=== PATIENT | male | born 1985 ===

== ENCOUNTER 2018-08-13 | Emergency (ER) | payer OTHER ==
--- NOTE | 2018-08-13 00:21 | ED PDOC ---
Arrival/HPI - General Chief Complaint: Chest Pain Time Seen by Provider: 08/13/18 00:07 Historian: Patient - History of Present Illness Narrative History of Present Illness (Text): 08/13/18 00:19 Lilian Parrish is a 32 year old male smoker, with no significant past medical history, who presents to the Emergency department complaining of chest pain. Patient states he woke up prior to arrival with mid-sternal chest pain, wo rsened with deep inspiration. Patient denies any fever, abdominal pain, nausea, vomiting, back pain, headache, or any other complaints. Patient denies any family history of CAD. Symptom Onset: Gradual Symptom Course: Unchanged Activities at Onset: Light Context: Home Past Medical History - Provider Review Nursing Documentation Reviewed: Yes - Psychiatric Hx Substance Use: No Family/Social History - Physician Review Nursing Documentation Reviewed: Yes Family/Social History: Unknown Family HX Smoking Status: Light Smoker < 10 Cigarettes Daily Hx Alcohol Use: Yes Frequency of alcohol use: Socially Hx Substance Use: No Allergies/Home Meds Allergies/Adverse Reactions: Allergies No Known Allergies Allergy (Verified 08/13/18 00:05) Home Medications: Home Meds Medication Instructions Recorded Confirmed RX: No Known Home Med 08/13/18 08/13/18 Review of Systems - Physician Review All systems were reviewed & negative as marked: Yes - Review of Systems Constitutional: Normal. absent: Fevers Eyes: Normal ENT: Normal Respiratory: Normal. absent: SOB, Cough Cardiovascular: Chest Pain Gastrointestinal: Normal. absent: Abdominal Pain, Diarrhea, Nausea, Vomiting Genitourinary Male: Normal. absent: Dysuria, Frequency, Hematuria, Urinary Output Changes Musculoskeletal: Normal. absent: Back Pain, Neck Pain Skin: Normal. absent: Rash Neurological: Normal. absent: Headache, Dizziness Endocrine: Normal Hemo/Lymphatic: Normal Psychiatric: Normal Physical Exam Vital Signs Reviewed: Yes Vital Signs Temp Pulse Resp BP Pulse Ox 08/13/18 00:05 98.7 F 66 20 131/85 99 Temperature: Afebrile Blood Pressure: Normal Pulse: Regular Respiratory Rate: Normal Appearance: Positive for: Well-Appearing, Non-Toxic, Comfortable Pain Distress: None Mental Status: Positive for: Alert and Oriented X 3 - Systems Exam Head: Present: Atraumatic, Normocephalic Pupils: Present: PERRL Extroacular Muscles: Present: EOMI Conjunctiva: Present: Normal Mouth: Present: Moist Mucous Membranes Neck: Present: Normal Range of Motion Respiratory/Chest: Present: Clear to Auscultation, Good Air Exchange, Tender to Palpation (left chest). No: Respiratory Distress, Accessory Muscle Use Cardiovascular: Present: Regular Rate and Rhythm, Normal S1, S2. No: Murmurs Abdomen: No: Tenderness, Distention, Peritoneal Signs Back: Present: Normal Inspection Upper Extremity: Present: Normal Inspection. No: Cyanosis, Edema Lower Extremity: Present: Normal Inspection. No: Edema Neurological: Present: GCS=15, CN II-XII Intact, Speech Normal Skin: Present: Warm, Dry, Normal Color. No: Rashes Psychiatric: Present: Alert, Oriented x 3, Normal Insight, Normal Concentration Medical Decision Making ED Course and Treatment: 08/13/18 00:19 Impression: 32 year old male complaining of chest pain after waking up tonight. Plan: -- EKG -- Chest X-ray -- Labs, cardiac enzymes -- Urinalysis -- Reassess and disposition Progress Notes: Reviewed EKG, NSR at [address]-segment elevations or depressions, no T-wave inversions, normal intervals 08/13/18 00:53 Chest X-ray reviewed, shows no acute processes. - Lab Interpretations I have reviewed the lab results: Yes - RAD Interpretation Manager Of Exhibitions And Collections: ED Physician - EKG Interpretation Interpreted by ED Physician: Yes Type: 12 lead EKG OLGA Risk Score for UA/NSTEMI - OLGA Risk Score Age > 64: NO 3 or more CAD Risk Factors: NO Known CAD (Stenosis greater than 50%): NO Aspirin use in past 7 days: NO Severe Angina: NO EKG ST changes greater than 0.5mm: NO Positive Cardiac Marker: NO LOGA Score: 0 % risk at 14 days of: all cause mortality, new or recurrent IA, or severe recurrent ischemia requiring urgen revascularization: 5% - Scribe Statement The provider has reviewed the documentation as recorded by the Keily Vázquez Provider Scribe Attestation: All medical record entries made by the Scribe were at my direction and personally dictated by me. I have reviewed the chart and agree that the record accurately reflects my personal performance of the history, physical exam, medical decision making, and the department course for this patient. I have also personally directed, reviewed, and agree with the discharge instructions and disposition. Disposition/Present on Arrival - Present on Arrival Any Indicators Present on Arrival: No History of DVT/PE: No History of Uncontrolled Diabetes: No Urinary Catheter: No History of Decub. Ulcer: No History Surgical Site Infection Following: None - Disposition Have Diagnosis and Disposition been Completed?: Yes Diagnosis: Chest pain Disposition: HOME/ ROUTINE Disposition Time: 02:30 Condition: GOOD Discharge Instructions (ExitCare): Chest Pain That Is Not Caused by the Heart (DC), Chest Pain (ED) Referrals: Trent Patterson MD [Primary Care Provider] - Follow up with primary Forms: [employer] (Haitian)
[2018-08-13 00:46] LABS: BASO # 0.02 K/mm3 (0.0-2.0); BASO % 0.1 % (0.0-3.0); EOS # 0.6 (0.0-0.7); EOS % 4.4 % (1.5-5.0); GRAN # 10.12 (1.4-6.5); HEMOGLOBIN 14.5 g/dL (14.0-18.0); LYMPH # 1.7 (1.2-3.4); LYMPH % 12.3 % (22.0-35.0); MEAN CELL VOLUME 94.7 fl (80.0-105.0); MEAN CORPUSCULAR HEMOGLOBIN 32.2 pg (25.0-35.0); MEAN PLATELET VOLUME 10.6 fl (7.0-11.0); MONO # 1.1 (0.1-0.6); MONO % 8.2 % (1.0-6.0); RBC 4.5 10^6/uL (3.5-6.1); RED CELL DISTRIBUTION WIDTH 13.5 % (11.5-14.5); WHITE BLOOD COUNT 13.5 10^3/uL (4.5-11.0)
[2018-08-13 01:01] LABS: ALB/GLOB RATIO 1.4 (1.1-1.8); ALBUMIN 4.2 g/dL (3.0-4.8); ALT/SGPT 29 U/L (7-56); AST/SGOT 28 U/L (17-59); BLOOD UREA NITROGEN 19 mg/dL (7-21); CALCIUM 8.9 mg/dL (8.4-10.5); GFR NON-AFRICAN AMERICAN > 60
[2018-08-13 01:10] LABS: TROPONIN I < 0.01 ng/mL
[2018-08-13 01:20] LABS: CK-MB 1.6 ng/mL (0.0-3.6)
[2018-08-13 01:57] VITALS: BP 137/82; PULSE 87; RESP 17; TEMP 98.1; O2SAT 98
--- NOTE | 2018-08-13 09:20 | RAD ---
Date of service: 08/13/2018 HISTORY: cp COMPARISON: No prior. FINDINGS: LUNGS: No active pulmonary disease. PLEURA: No significant pleural effusion identified, no pneumothorax apparent. CARDIOVASCULAR: No aortic atherosclerotic calcification present. Normal cardiac size. No pulmonary vascular congestion. OSSEOUS STRUCTURES: No significant abnormalities. VISUALIZED UPPER ABDOMEN: Normal. OTHER FINDINGS: None. IMPRESSION: No active disease.
--- NOTE | 2018-08-13 17:24 | CARD ---
APPROVED REPORT Date of service: 08/13/2018 EKG Measurement Heart [id number] NC 142P2 [id number] <Conclusion> Normal sinus rhythm Normal ECG
== END 2018-08-13 01:57 | disposition home or self-care (01) ==
LOC: ED
DX: R07.9 Chest pain, unspecified (principal)
CPT/HCPCS: 71045; 80053; 82550; 82553; 83615; 83735; 84484; 85025; 93005; 96374; 99283; J1885

== ENCOUNTER 2019-02-12 12:15 | Emergency (ER) | payer OTHER ==
[2019-02-12 13:05] LABS: BASO # 0.02 K/mm3 (0.0-2.0); BASO % 0.2 % (0.0-3.0); EOS # 0.4 (0.0-0.7); EOS % 4.1 % (1.5-5.0); HEMOGLOBIN 15.8 g/dL (14.0-18.0); LYMPH # 1.5 (1.2-3.4); LYMPH % 14.3 % (22.0-35.0); MEAN CELL VOLUME 93.5 fl (80.0-105.0); MEAN CORPUSCULAR HEMOGLOBIN 32.1 pg (25.0-35.0); MEAN CORPUSCULAR HGB CONC 34.3 g/dl (31.0-37.0); MEAN PLATELET VOLUME 10.7 fl (7.0-11.0); MONO # 1.1 (0.1-0.6); MONO % 10.5 % (1.0-6.0); RBC 4.92 10^6/uL (3.5-6.1); RED CELL DISTRIBUTION WIDTH 13.4 % (11.5-14.5); WHITE BLOOD COUNT 10.2 10^3/uL (4.5-11.0)
[2019-02-12 13:15] LABS: ALB/GLOB RATIO 1.4 (1.1-1.8); ALBUMIN 4.7 g/dL (3.0-4.8); ALT/SGPT 23 U/L (7-56); AST/SGOT 31 U/L (17-59); BLOOD UREA NITROGEN 11 mg/dL (7-21); CALCIUM 9.1 mg/dL (8.4-10.5); GFR NON-AFRICAN AMERICAN > 60
--- NOTE | 2019-02-12 13:17 | RAD ---
Date of service: 02/12/2019 HISTORY: chest pain COMPARISON: 08/13/2018 TECHNIQUE: 1 view obtained. FINDINGS: LUNGS: No active pulmonary disease. PLEURA: No significant pleural effusion identified, no pneumothorax apparent. CARDIOVASCULAR: No aortic atherosclerotic calcification present. Normal cardiac size. No pulmonary vascular congestion. OSSEOUS STRUCTURES: No significant abnormalities. VISUALIZED UPPER ABDOMEN: Normal. OTHER FINDINGS: None. IMPRESSION: No active disease.
[2019-02-12 13:27] LABS: TROPONIN I < 0.01 ng/mL
--- NOTE | 2019-02-12 13:34 | ED PDOC ---
Arrival/HPI - General Chief Complaint: Chest Pain Time Seen by Provider: 02/12/19 12:24 Historian: Patient - History of Present Illness Narrative History of Present Illness (Text): 02/12/19 13:34 A 33 year old male, who denies any significant past medical history, presents to the emergency department with a complaint of sharp chest pain. Patient reports that the pain began at around 3 AM today. He states that he took Ibuprofen with relief, but the pain returned. He denies any cardiac history in young people in his family. The patient denies fevers, chills, headache, dizziness, shortness of breath, dyspnea on exertion, cough, abdominal pain, nausea, vomiting, diarrhea, back pain, neck pain, urinary/bowel changes, or any other complaint. Time/Duration: Other (3 AM today) Symptom Onset: Sudden Symptom Course: Intermittent Activities at Onset: Rest, Light Context: Home Past Medical History - Provider Review Nursing Documentation Reviewed: Yes - Infectious Disease Hx of Infectious Diseases: None - Psychiatric Hx Substance Use: No - Anesthesia Hx Anesthesia: No Family/Social History - Physician Review Nursing Documentation Reviewed: Yes Family/Social History: No Known Family HX Smoking Status: Light Smoker < 10 Cigarettes Daily Hx Alcohol Use: Yes Hx Substance Use: No Allergies/Home Meds Allergies/Adverse Reactions: Allergies No Known Allergies Allergy (Verified 09/10/18 14:04) Review of Systems - Physician Review All systems were reviewed & negative as marked: Yes - Review of Systems Constitutional: absent: Fevers Respiratory: absent: SOB, Cough Cardiovascular: Chest Pain. absent: VERA Gastrointestinal: absent: Abdominal Pain, Stool Changes, Diarrhea, Nausea, Vomiting Genitourinary Male: absent: Urinary Output Changes Musculoskeletal: absent: Back Pain, Neck Pain Neurological: absent: Headache, Dizziness Physical Exam Vital Signs Reviewed: Yes Vital Signs Temp Pulse Resp BP Pulse Ox 02/12/19 12:30 98.5 F 60 18 152/91 H 100 Temperature: Afebrile Blood Pressure: Hypertensive Pulse: Regular Respiratory Rate: Normal Appearance: Positive for: Well-Appearing, Non-Toxic, Comfortable Pain Distress: None Mental Status: Positive for: Alert and Oriented X 3 - Systems Exam Head: Present: Atraumatic, Normocephalic Pupils: Present: PERRL Extroacular Muscles: Present: EOMI Conjunctiva: Present: Normal Mouth: Present: Moist Mucous Membranes Neck: Present: Normal Range of Motion Respiratory/Chest: Present: Clear to Auscultation, Good Air Exchange. No: Respiratory Distress, Accessory Muscle Use Cardiovascular: Present: Regular Rate and Rhythm, Normal S1, S2. No: Murmurs Abdomen: No: Tenderness, Distention, Peritoneal Signs Back: Present: Normal Inspection Upper Extremity: Present: Normal Inspection. No: Cyanosis, Edema Lower Extremity: Present: Normal Inspection. No: Edema Neurological: Present: GCS=15, CN II-XII Intact, Speech Normal Skin: Present: Warm, Dry, Normal Color. No: Rashes Psychiatric: Present: Alert, Oriented x 3, Normal Insight, Normal Concentration Medical Decision Making ED Course and Treatment: Impression: A 33 year old male presents to the emergency department with a complaint of sharp chest pain. Plan: -- EKG -- Chest X-ray -- Labs -- Toradol -- Reassess and disposition Progress Notes: 02/12/19 12:30: EKG read and interpreted by me shows NSR at 62 BPM. Early repolarization. Chest X-ray Dictator : Franky Yang MD Report Date : 02/12/2019 13:13:35 IMPRESSION: No active disease. On re-evaluation, patient feels better and is in no acute distress. I have discussed the results and plan with the patient, who expresses understanding. Patient in agreement with plan to be discharged home. Patient is stable for discharge. Patient was instructed to follow up with physician or return if symptoms worsen or new concerning symptoms arise. - Lab Interpretations Lab Results: Troponin I < 0.01 ng/mL 02/12/19 12:42 Total Bilirubin 0.9 mg/dL (0.2-1.3) 02/12/19 12:42 AST 31 U/L (17-59) 02/12/19 12:42 ALT 23 U/L (7-56) 02/12/19 12:42 Alkaline Phosphatase 64 U/L (38-126) 02/12/19 12:42 Total Protein 8.1 g/dL (5.8-8.3) 02/12/19 12:42 Albumin 4.7 g/dL (3.0-4.8) 02/12/19 12:42 Globulin 3.4 gm/dL 02/12/19 12:42 Albumin/Globulin Ratio 1.4 (1.1-1.8) 02/12/19 12:42 I have reviewed the lab results: Yes - RAD Interpretation Radiology Orders: 02/12/19 12:29 CHEST PORTABLE [RAD] Stat - EKG Interpretation Interpreted by ED Physician: Yes Type: 12 lead EKG - Scribe Statement The provider has reviewed the documentation as recorded by the Scribe Samantha Mccracken Provider Scribe Attestation: All medical record entries made by the Scribe were at my direction and personally dictated by me. I have reviewed the chart and agree that the record accurately reflects my personal performance of the history, physical exam, medical decision making, and the department course for this patient. I have also personally directed, reviewed, and agree with the discharge instructions and disposition. Disposition/Present on Arrival - Present on Arrival Any Indicators Present on Arrival: No History of DVT/PE: No History of Uncontrolled Diabetes: No Urinary Catheter: No History of Decub. Ulcer: No History Surgical Site Infection Following: None - Disposition Have Diagnosis and Disposition been Completed?: Yes Diagnosis: Atypical chest pain Disposition: HOME/ ROUTINE Disposition Time: 13:25 Condition: IMPROVED Discharge Instructions (ExitCare): Chest Pain That Is Not Caused by the Heart (DC) Additional Instructions: DANDRE VEGA, thank you for letting us take care of you today. The emergency medical care you received today was directed at your acute symptoms. If you were prescribed any medication, please fill it and take as directed. It may take several days for your symptoms to resolve. Return to the Emergency Department if your symptoms worsen, do not improve, or if you have any other problems. Please contact your doctor or call one of the physicians/clinics you have been referred to that are listed on the Patient Visit Information form that is included in your discharge packet. Bring any paperwork you were given at discharge with you along with any medications you are taking to your follow up visit. Our treatment cannot replace ongoing medical care by a primary care provider outside of the emergency department. Thank you for allowing the [facility] team to be part of your care today. Follow up with your primary care doctor this week. You may be referred to a specialist for further evaluation. Prescriptions: Ibuprofen [Motrin] 600 mg PO Q6 PRN #20 tab PRN Reason: Pain, Moderate (4-7) Referrals: Tamar Mccracken APN [Primary Care Provider] - Follow up with primary Forms: [employer] (Arabic)
[2019-02-12 14:03] VITALS: BP 145/62; TEMP 98.1
[2019-02-12 14:05] VITALS: PULSE 61; RESP 17; O2SAT 100
--- NOTE | 2019-02-12 20:55 | CARD ---
APPROVED REPORT Date of service: 02/12/2019 EKG Measurement Heart [id number] <Conclusion> Normal sinus rhythm Early repolarization Normal ECG
== END 2019-02-12 14:06 | disposition home or self-care (01) ==
LOC: ED 12:15
DX: R07.89 Other chest pain (principal)
CPT/HCPCS: 71045; 80053; 82550; 83615; 83735; 84484; 85025; 93005; 96374; 99283; J1885